=== PATIENT | male | born 1960 | race Caucasian/White ===

== ENCOUNTER 2017-09-29 11:53 | Emergency (ER) | payer MEDICAID ==
[2017-09-29 12:10] LABS: ADD MAN DIFF? NO
[2017-09-29] MEDS: ALBUMIN HUMAN 25% 200 ML IV ×2 (12:21→13:42)
[2017-09-29 12:38] LABS: INR 1.84; PROTIME 21.7 Sec (11.9-14.9); PT RATIO 1.7
[2017-09-29 12:39] LABS: PARTIAL THROMBOPLASTIN TIME 42.9 Sec (25.0-35.0)
[2017-09-29 13:02] LABS: ALANINE AMINOTRANSFERASE 22 IU/L (13-69); ALBUMIN 2.5 g/dl (3.3-4.9); ALBUMIN/GLOBULIN RATIO 0.69; ALKALINE PHOSPHATASE 116 IU/L (42-121); ANION GAP 10 (8-16); ASPARTATE AMINO TRANSFERASE 89 IU/L (15-46); BILIRUBIN,INDIRECT 2.5 mg/dl (0-1.1); BILIRUBIN,TOTAL 2.5 mg/dl (0.2-1.3); BLOOD UREA NITROGEN 11 mg/dl (7-20); CALCIUM 8.1 mg/dl (8.4-10.2); CARBON DIOXIDE 23 mmol/L (21-31); CHLORIDE 111 mmol/L (97-110); CREATININE 0.64 mg/dl (0.61-1.24); GLUCOSE 105 mg/dl (70-220); SODIUM 140 mmol/L (135-144); TOTAL PROTEIN 6.1 g/dl (6.1-8.1)
[2017-09-29] MEDS: LIDOCAINE 1% (MPF) 5 ML VIAL (13:35)
[2017-09-29 13:44] LABS: FLD MN% 72.5 %; FLD PMN% 27.5 %; FLD RBC 0 /uL; FLD WBC 215 /cmm
[2017-09-29 13:54] LABS: WHITE BLOOD COUNT 5.7 10^3/ul (4.8-10.8)
[2017-09-29 13:54] LABS: BASOPHIL # 0.1 10^3/ul (0.0-0.1); BASOPHILS % 0.9 % (0.0-2.0); EOSINOPHILS # 0.2 10^3/ul (0.0-0.5); EOSINOPHILS % 3.7 % (0.0-7.0); HEMATOCRIT 31.3 % (42.0-52.0); HEMOGLOBIN 10.4 g/dl (14.0-18.0); IMMATURE GRANS #M 0 10^3/ul; IMMATURE GRANS % (M) 0 %; LYMPHOCYTES # 0.9 10^3/ul (0.8-2.9); LYMPHOCYTES % 15.9 % (15.0-51.0); MEAN CORPUSCULAR HGB CONC 33.2 g/dl (32.0-37.0); MEAN CORPUSCULAR VOLUME 99.4 fl (82.0-101.0); MEAN PLATELET VOLUME 9.9 fl (7.4-10.4); MONOCYTE # 0.8 10^3/ul (0.3-0.9); MONOCYTES % 13.6 % (0.0-11.0); NEUTROPHIL # 3.7 10^3/ul (1.6-7.5); NEUTROPHILS % 65.9 % (39.0-77.0); PLATELET COUNT 127 10^3/UL (140-415); RED BLOOD COUNT 3.15 10^6/ul (4.70-6.10); RED CELL DISTRIBUTION WIDTH 14.6 % (11.5-14.5)
[2017-09-29 14:28] LABS: FLD TYPE ASCITES
[2017-09-29 14:28] LABS: FLD CLARITY HAZY; FLD COLOR YELLOW; PATH REVIEW? YES
== END 2017-09-29 14:48 | disposition home or self-care (01) ==
LOC: E/R 11:53
DX: K70.31 Alcoholic cirrhosis of liver with ascites (principal)
CPT/HCPCS: 36415; 80053; 85025; 85610; 85730; 87070; 87102; 87116; 89051; 96365; 99285-25

== ENCOUNTER 2018-03-07 11:17 | Day surgery (SDC) | payer BC, MEDICAID ==
[2018-03-07] MEDS ORDERED: LIDOCAINE 2% (SDV) 5 ML INJ (14:15)
[2018-03-07] MEDS ORDERED: PROPOFOL 60 ML (14:15)
== END 2018-03-07 16:27 | disposition home or self-care (01) ==
LOC: GIL 11:17
DX: Z12.11 Encounter for screening for malignant neoplasm of colon (principal); K29.50 Unspecified chronic gastritis without bleeding; K64.8 Other hemorrhoids; I85.00 Esophageal varices without bleeding; K44.9 Diaphragmatic hernia without obstruction or gangrene; K21.0 Gastro-esophageal reflux disease with esophagitis
CPT/HCPCS: 43239; 88305; 88312